=== PATIENT | female | born 1980 | race Caucasian/White ===

== ENCOUNTER 2017-01-04 11:00 | Emergency (ER) | payer OTHER ==
[~2017-01-04] VITALS: Ht 170.2 cm; Wt 68.0 kg
[2017-01-04 11:31] VITALS: BP 111/73
[2017-01-04] MEDS ORDERED: ONDANSETRON 2MG/ML, 2ML IVPush ONE (12:00)
[2017-01-04] MEDS ORDERED: SODIUM CHLORIDE FLUSH 10ML SYR IVF ONE (12:00)
[2017-01-04] MEDS ORDERED: SODIUM CHLORIDE 0.9% 1,000ML IVBOLUS ONE (12:00)
[2017-01-04] MEDS ORDERED: MORPHINE SULFATE 4 MG/ML, 1ML IVPush PRN (12:00)
[2017-01-04 12:18] LABS: HEMATOCRIT 39.5 % (34.6-47.8); HEMOGLOBIN 12.6 g/dL (11.7-16.4); WHITE BLOOD COUNT 8.9 x10^3/uL (3.4-10)
[2017-01-04 12:27] LABS: BLOOD UREA NITROGEN 6 mg/dL (7-18)
[2017-01-04] MEDS ORDERED: ONDANSETRON ODT 4 MG ONE (13:06)
[2017-01-04] MEDS ORDERED: ONDANSETRON ODT 4 MG PO ONE (13:30)
== END 2017-01-04 13:39 | disposition home or self-care (01) ==
LOC: ED 13:32
DX: N30.00 Acute cystitis without hematuria (principal); N83.202 Unspecified ovarian cyst, left side
CPT/HCPCS: 36415; 76801; 80048; 81001; 82040; 84702; 85025; 86901; 87086; 96360; 99285; J7030; Q0162